=== PATIENT | female | born 1955 | race American Indian/Alaskan Native ===

== ENCOUNTER 2017-09-12 06:35 | Emergency (ER) | payer MEDICAID ==
[2017-09-12 07:22] LABS: Hematocrit 41.7 % (30.3-42.9); Hemoglobin 13.7 gm/dl (10.1-14.3); Mean Corpuscular HGB Conc 33 % (30-34); Mean Corpuscular Hemoglobin 32 pg (28-32); Mean Corpuscular Volume 96 fl (79-97); Platelet Count 295 K/mm3 (140-440); Red Blood Count 4.36 M/mm3 (3.65-5.03); Red Cell Distribution Width 13.7 % (13.2-15.2)
[2017-09-12 07:36] LABS: Alanine Aminotransferase 12 units/L (7-56); BUN/Creatinine Ratio 16; Blood Urea Nitrogen 11 mg/dL (7-17); Calcium 9.5 mg/dL (8.4-10.2); Hemolysis Index 8
--- NOTE | 2017-09-12 08:11 | Emergency Department Report ---
ED Extremity Problem HPI - General Chief complaint: Pain General Stated complaint: FLANK PAIN Time Seen by Provider: 09/12/17 07:41 Source: patient, family Mode of arrival: Ambulatory Limitations: No Limitations - History of Present Illness Initial comments: This is a 62-year-old female presents to emergency room with bilateral flank pain that is elevated at 10 and achy. No alleviating or exacerbating factors. No medication taken. She is also complaining is radiating down to her right hip and this started one week ago. Denies any urinary burning frequency or urgency. Denies any abdominal pain. He denies any nausea vomiting or back pain. She has a history of diabetes and hypertension MD Complaint: extremity pain, other (bilateral flank pain) Onset/Timin -: week(s) Location: right, lower extremity (hip) History of Same: No Radiation: distal Severity scale (0 -10): 8 Quality: aching Consistency: constant Improves with: nothing Worsens with: nothing Associated Symptoms: denies other symptoms - Related Data Home Medications Medication Instructions Recorded Confirmed Last Taken No Known Home Medications [No 09/12/17 09/12/17 Unknown Reported Home Medications] Previous Rx's Medication Instructions Recorded Last Taken Type Ciprofloxacin HCl [Ciprofloxacin 500 mg PO Q12HR 10 Days #20 tab 09/12/17 Unknown Rx TAB] Allergies Allergy/AdvReac Type Severity Reaction Status Date / Time No Known Allergies Allergy Verified 09/12/17 06:51 ED Review of Systems ROS: Stated complaint: FLANK PAIN Other details as noted in HPI Constitutional: denies: chills, fever Eyes: denies: eye pain, eye discharge, vision change ENT: denies: ear pain, throat pain Respiratory: denies: cough, shortness of breath, SOB with exertion, SOB at rest , wheezing Cardiovascular: denies: chest pain, palpitations, dyspnea on exertion, edema, syncope, paroxysmal nocturnal dyspnea Gastrointestinal: denies: abdominal pain, nausea, vomiting, diarrhea Genitourinary: denies: urgency, dysuria, frequency, hematuria, discharge, dyspareunia Musculoskeletal: back pain (bilateral flank pain), arthralgia, myalgia. denies : joint swelling Skin: denies: rash, lesions Neurological: denies: headache, weakness, numbness, paresthesias, abnormal gait , other ED Past Medical Hx - Past Medical History Previous Medical History?: Yes Hx Hypertension: Yes Hx Diabetes: Yes - Surgical History Past Surgical History?: Yes Additional Surgical History: left great toe bone spur removal - Family History Family history: hypertension - Social History Smoking Status: Former Smoker Substance Use Type: Alcohol - Medications Home Medications: Home Medications Medication Instructions Recorded Confirmed Last Taken Type Ciprofloxacin HCl [Ciprofloxacin 500 mg PO Q12HR 10 Days #20 tab 09/12/17 Unknown Rx TAB] No Known Home Medications [No 09/12/17 09/12/17 Unknown History Reported Home Medications] ED Physical Exam - General Limitations: No Limitations General appearance: alert, in no apparent distress - Head Head exam: Present: atraumatic, normocephalic, normal inspection - Eye Eye exam: Present: normal appearance, PERRL, EOMI Pupils: Present: normal accommodation - ENT ENT exam: Present: normal exam, normal orophraynx, mucous membranes moist - Neck Neck exam: Present: normal inspection, full ROM. Absent: tenderness, lymphadenopathy - Respiratory Respiratory exam: Present: normal lung sounds bilaterally. Absent: respiratory distress, chest wall tenderness - Cardiovascular Cardiovascular Exam: Present: regular rate, normal rhythm, normal heart sounds. Absent: systolic murmur, diastolic murmur - GI/Abdominal GI/Abdominal exam: Present: soft, normal bowel sounds. Absent: distended, tenderness, guarding, rebound, rigid, organomegaly, mass, bruit, pulsatile mass , hernia - Extremities Exam Extremities exam: Present: normal inspection, full ROM, normal capillary refill , other (No cce. + 2 pulses in all extremities, no neurovascular compromise). Absent: tenderness, pedal edema, joint swelling, calf tenderness - Back Exam Back exam: Present: normal inspection, other (ambulates without any difficulties ). Absent: full ROM, tenderness, CVA tenderness (R), CVA tenderness (L), muscle spasm, paraspinal tenderness, vertebral tenderness, rash noted - Neurological Exam Neurological exam: Present: alert, oriented X3, normal gait, reflexes normal, other (no focal neurological deficits). Absent: motor sensory deficit - Psychiatric Psychiatric exam: Present: normal affect, normal mood - Skin Skin exam: Present: warm, dry, intact, normal color. Absent: rash ED Course - Reevaluation(s) Reevaluation #1: 09/12/17 09:16 Patient given Percocet 5/325 2 tablets by mouth for back pain with positive relief. Potassium is 3.2 sisters pleaded with 40 mEq of potassium in the emergency room and she was given 8 mg of Zofran ODT to prevent nausea ED Medical Decision Making - Lab Data Result diagrams: 09/12/17 07:07 09/12/17 07:07 Lab Results 09/12/17 09/12/17 09/12/17 Range/Units 07:07 07:07 07:39 WBC 6.5 (4.5-11.0) K/mm3 RBC 4.36 (3.65-5.03) M/mm3 Hgb 13.7 (10.1-14.3) gm/dl Hct 41.7 (30.3-42.9) % MCV 96 (79-97) fl MCH 32 (28-32) pg MCHC 33 (30-34) % RDW 13.7 (13.2-15.2) % Plt Count 295 (140-440) K/mm3 Sodium 142 (137-145) mmol/L Potassium 3.2 L (3.6-5.0) mmol/L Chloride 100.6 (98-107) mmol/L Carbon Dioxide 31 H (22-30) mmol/L Anion Gap 14 mmol/L BUN 11 (7-17) mg/dL Creatinine 0.7 (0.7-1.2) mg/dL Estimated GFR > 60 ml/min BUN/Creatinine Ratio 16 % Glucose 93 (65-100) mg/dL Calcium 9.5 (8.4-10.2) mg/dL Total Bilirubin 0.40 (0.1-1.2) mg/dL AST 18 (5-40) units/L ALT 12 (7-56) units/L Alkaline Phosphatase 110 (35-129) units/L Total Protein 7.2 (6.3-8.2) g/dL Albumin 4.0 (3.9-5) g/dL Albumin/Globulin Ratio 1.3 % Urine Color Yellow (Yellow) Urine Turbidity Hazy (Clear) Urine pH 5.0 (5.0-7.0) Ur Specific [place] 1.026 (1.003-1.030) Urine Protein <15 mg/dl (Negative) mg/dL Urine Glucose (UA) Neg (Negative) mg/dL Urine Ketones Neg (Negative) mg/dL Urine Blood Neg (Negative) Urine Nitrite Neg (Negative) Urine Bilirubin Neg (Negative) Urine Urobilinogen 2.0 (<2.0) mg/dL Ur Leukocyte Esterase Lg (Negative) Urine WBC (Auto) 16.0 H (0.0-6.0) /HPF Urine RBC (Auto) 7.0 (0.0-6.0) /HPF U Epithel Cells (Auto) 6.0 (0-13.0) /HPF Urine Bacteria (Auto) 1+ (Negative) /HPF Hyaline Casts 1 /LPF Urine Mucus 3+ /HPF Urine culture pending - Radiology Data Radiology results: report reviewed Lumbar sacral spine x-ray dictated by radiologist and report reviewed by myself. See report below Patient: BEVERLY GUPTA MR#: [id number] : 1955 Acct:[id number] Age/Sex: 62 / F ADM Date: 09/12/17 Loc: ED Attending Dr: Ordering Physician: DEBBY THOMAS Date of Service: 09/12/17 Procedure(s): XR spine lumbosacral 2-3V Accession Number(s): [id number] cc: DEBBY THOMAS Fluoro Time In Minutes: AP AND LATERAL LUMBOSACRAL SPINE: History: Low back pain, lumbar radiculopathy Moderate to severe hypertrophic facet arthropathy is identified at L4-5. There is 3 mm anterolisthesis of L4 with respect L5. The remaining lumbar vertebra are normal in alignment. No evidence for fracture or bone lesion. . IMPRESSION: Moderate to severe facet arthropathy at L4-5. No acute process. Transcribed By: TTR Dictated By: KARY FARRAR JR, MD Electronically Authenticated By: KARY FARRAR JR, MD Signed Date/Time: 09/12/17834 DD/ 3 TD/TT: 09/12/17834 - Medical Decision Making This is a 62-year-old female here complaining of pain to bilateral flank radiation onto her right hip. started 1 week ago and she denies any urinary symptoms. She did not be evaluated. PT Seen and evaluated by myself and her exam is normal to include neurologic home and back exam. She does not have any CVA tenderness. Urinalysis shows positive bacteria, positive white blood cells and positive leukocyte Estrace with hazy urine otherwise normal. Patient had x-ray lumbosacral spine which was dictated by radiologist and report reviewed by myself and showed arthritis of facet is joint. No acute findings seen. I discussed urinalysis and x-rays of the patient's and she voiced understanding. She was given a medication which relieved her pain. Patient with acute cystitis with hematuria-sent home on ciprofloxacin. For a bacterial primary care physician was Dr. Welch. Urine culture sent Degenerative disc disease lumbar spine-referral to orthopedic doctor PT discharged home in stable condition with prescription for ciprofloxacin and to follow up with orthopedic doctor and her primary care physician in 4 days. Her vital signs are stable she is afebrile and nontoxic in appearance and she voiced understanding of discharge information. - Differential Diagnosis DDD, pyelonephritis lumbar radiculopathy, UTI Critical care attestation.: If time is entered above; I have spent that time in minutes in the direct care of this critically ill patient, excluding procedure time. ED Disposition Clinical Impression: Acute cystitis without hematuria, Bilateral flank pain, Lumbar degenerative disc disease Disposition: DC- TO HOME OR SELFCARE Is pt being admited?: No Does the pt Need Aspirin: No Condition: Stable Instructions: Degenerative Disc Disease (ED), Dysuria (ED), Flank Pain (ED) Additional Instructions: Please follow up with orthopedic and primary care physician as instructed Take medication as prescribed Prescriptions: Ciprofloxacin HCl [Ciprofloxacin TAB] 500 mg PO Q12HR 10 Days #20 tab Referrals: ANGEL LUIS FORMAN MD [Staff Physician] - 09/16/17 PRIMARY CARE, [Primary Care Provider] - 09/16/17 Forms: Work/School Release Form(ED)
[2017-09-12] MEDS ORDERED: PERCOCET 5/325 PO ONE (08:12)
[2017-09-12] MEDS ORDERED: K-DUR PO ONE (08:12)
[2017-09-12] MEDS ORDERED: ZOFRAN ODT PO ONE (08:12)
[2017-09-12 08:21] LABS: Bacteria,Urine 1+ /HPF (Negative); Bilirubin,Urine NEG (Negative); Blood,Urine NEG (Negative); Color,Urine Yellow (Yellow); Hyaline Casts,Urine 1 /LPF; Mucus,Urine 3+ /HPF; Protein,Urine <15 mg/dL mg/dL (Negative)
--- NOTE | 2017-09-12 08:46 | XRay Report ---
AP AND LATERAL LUMBOSACRAL SPINE: History: Low back pain, lumbar radiculopathy Moderate to severe hypertrophic facet arthropathy is identified at L4-5. There is 3 mm anterolisthesis of L4 with respect L5. The remaining lumbar vertebra are normal in alignment. No evidence for fracture or bone lesion. . IMPRESSION: Moderate to severe facet arthropathy at L4-5. No acute process.
[2017-09-12 09:23] VITALS: BP 166/66
[2017-09-12 09:31] LABS: Total Cells Counted 100
[2017-09-12 09:32] LABS: Large Platelets Few; Platelet Estimate Cons; RBC Morphology Normal
== END 2017-09-12 09:38 | disposition home or self-care (01) ==
LOC: ED 06:35
DX: N30.00 Acute cystitis without hematuria (principal); M51.36 Other intervertebral disc degeneration, lumbar region; I10 Essential (primary) hypertension; E11.9 Type 2 diabetes mellitus without complications; Z87.891 Personal history of nicotine dependence
CPT/HCPCS: 36415; 72100; 80053; 81001; 85007; 85025; 87086; 99284; Q0162